=== PATIENT | male | born 1990 | race Caucasian/White ===

== ENCOUNTER 2020-12-28 22:16 | Emergency (ER) | payer SELFPAY ==
[2020-12-28 22:18] VITALS: BP 133/95; PULSE 95; RESP 18; TEMP 37.1; O2SAT 100; BMI 28.1
--- NOTE | 2020-12-28 22:27 | PC.NURSE ---
per , symptoms began after smoking marijuana at 1900.
== END 2020-12-29 01:15 | disposition left against medical advice (07) ==
LOC: HO.ED 12-29 01:14
PROVIDERS: Emergency Provider Emergency Medicine
DX: R20.0 Anesthesia of skin (principal); F41.9 Anxiety disorder, unspecified
CPT/HCPCS: 99281; 99282

== ENCOUNTER 2021-02-04 16:58 | Emergency (ER) | payer MEDICAID, SELFPAY | END 2021-02-04 19:03 | disposition left against medical advice (07) | PROVIDERS: Emergency Provider Emergency Medicine | DX: S01.21XA Laceration without foreign body of nose, initial encounter (principal); X58.XXXA Exposure to other specified factors, initial encounter; Y93.9 Activity, unspecified; Y92.9 Unspecified place or not applicable; Y99.9 Unspecified external cause status ==

== ENCOUNTER 2021-05-04 13:28 | Outpatient (REF) | payer OTHER, SELFPAY | END 2021-05-04 13:29 | disposition home or self-care (01) | LOC: HO.LAB 13:28 | PROVIDERS: Visit Provider Internal Medicine | DX: Z20.822 Contact with and (suspected) exposure to COVID-19 (principal) | CPT/HCPCS: C9803; U0003; U0005 ==

== ENCOUNTER 2021-05-10 08:27 | Outpatient (REF) | payer MEDICAID, SELFPAY | END 2021-05-10 08:28 | disposition home or self-care (01) | LOC: HO.LAB 08:27 | PROVIDERS: Visit Provider Internal Medicine | DX: Z20.822 Contact with and (suspected) exposure to COVID-19 (principal) | CPT/HCPCS: C9803; U0003; U0005 ==

== ENCOUNTER 2021-06-25 09:17 | Emergency (ER) | payer MEDICAID, SELFPAY ==
[2021-06-25 09:20] VITALS: BP 114/62; BP 128/59; PULSE 120; PULSE 89; RESP 24; O2SAT 97; O2SAT 98; BMI 33.8
[2021-06-25] MEDS: Haloperidol Lactate 5 MG/ML VIAL IV (09:31)
[2021-06-25] MEDS: LORazepam 2 MG/ML VIAL 1 MG IVPUSH (09:32)
[2021-06-25] MEDS: 0.9 % Sodium Chloride 1,000 ML 999 ML IV (09:34)
[2021-06-25] MEDS: diphenhydrAMINE HCL 50 MG/ML VIAL IVPUSH (09:38)
[2021-06-25] MEDS: Haloperidol Lactate 5 MG/ML VIAL IVPUSH (09:38)
--- NOTE | 2021-06-25 10:11 | MHC.CARE ---
Pt should be offered SUDE assessment when clinically appropriate
--- NOTE | 2021-06-25 10:17 | PC.NURSE ---
Mother here for update, limited on information given, made aware when pt awakes and verbal permission is obtained, more in depth update can be provided. Mother Ximena [phone]
[2021-06-25 10:24] VITALS: BP 91/44; PULSE 81; RESP 18; O2SAT 93
[2021-06-25 10:42] LABS: MANUAL DIFF FLAG NO
[2021-06-25 10:46] LABS: Basophils Absolute Auto 0.1 X10*3/uL (0.0-0.2); Basophils Percent Auto 0.4 % (0-2); Eosinophils Absolute Auto 0.2 X10*3/uL (0.0-0.4); Eosinophils Percent Auto 1.5 % (0-4); Hematocrit 40.3 % (42.0-52.0); Hemoglobin 13.6 g/dl (14.0-18.0); Imm Gran Abs Auto 0.07 X10*3/uL (0.00-0.03); Imm Gran Pct Auto 0.5 % (0.0-0.4); Lymphocytes Absolute Auto 1.7 X10*3/uL (1.2-4.9); Lymphocytes Percent Auto 12.1 % (20-40); Mean Corpuscular HGB Conc 33.7 g/dl (31.0-36.0); Mean Corpuscular Hemoglobin 31.2 pg (27.0-33.0); Mean Corpuscular Volume 92.4 fL (80.0-98.0); Mean Platelet Volume 9.9 fL (9.4-12.4); Monocytes Absolute Auto 0.8 X10*3/uL (0.1-1.2); Monocytes Percent Auto 5.5 % (2-11); Neutrophils Absolute Auto 11.4 x10*3/uL (2.0-8.3); Platelet Count 220 X10*3/uL (160-400); Red Blood Count 4.36 X10*6/uL (4.60-5.80); White Blood Count 14.3 X10*3/uL (4.8-10.8)
[2021-06-25 11:00] LABS: COVID-19 Test Negative (Negative); IDNOW Serial# 9DD0AD1C
[2021-06-25 11:01] LABS: Ethanol < 10 mg/dL
[2021-06-25 11:07] LABS: Alanine Aminotransferase 13 U/L (0-40); Albumin Level 3.5 g/dL (3.5-5.0); Alkaline Phosphatase 55 U/L (39-117); Anion Gap 12 (12-20); Aspartate Amino Transferase 16 U/L (5-37); Bilirubin Total < 0.2 mg/dL (0.0-1.0); Blood Urea Nitrogen 10 mg/dL (9-16); Calcium 8.5 mg/dL (8.4-10.2); Carbon Dioxide 26 mmol/L (22-29); Chloride 107 mmol/L (96-108); Estimated Glomerular Filt Rate > 60; Glucose Random 93 mg/dL (60-115); Potassium 3.6 mmol/L (3.3-5.1); Sodium 141 mmol/L (135-145); Total Protein 6.2 g/dL (6.5-8.0)
[2021-06-25 13:18] VITALS: BP 93/45; PULSE 73; RESP 10; O2SAT 100
--- NOTE | 2021-06-25 14:25 | PC.NURSE ---
spoke to dad, no update given as pt remains asleep, contact Lauri [phone]
[2021-06-25 15:03] VITALS: BP 95/51; PULSE 63; RESP 18; O2SAT 97
[2021-06-25 15:22] LABS: Amphetamine Screen Urine Not Detected (Not Detect); Barbiturates, Urine Not Detected (Not Detect); Benzodiazepines Screen Urine POSITIVE (Not Detect); Cannabinoid Screen Urine POSITIVE (Not Detect); Cocaine Screen Urine POSITIVE (Not Detect); Fentanyl, urine POSITIVE (Not Detect); Opiate Screen Urine POSITIVE (Not Detect); Phencyclidine Screen Urine Not Detected (Not Detect)
--- NOTE | 2021-06-25 18:20 | ED.OVERDOSE ---
HPI - Overdose General Chief Complaint: Overdose Stated Complaint: OD,NARCAN GIVEN, AGGRESSIVE Time Seen by Provider: 06/25/21 09:23 Source: EMS Mode of arrival: EMS Limitations: altered mental status History of Present Illness HPI Narrative: 30-year-old male who is brought to the emergency department for possible overdose. Patient was found unresponsive with a low respiratory rate by his girlfriend. When the paramedics arrived on the scene the in a very low respiratory rate with pinpoint pupils. The patient was given Narcan 0.5 mg IV. The patient then woke up and was extremely aggressive and agitated. He vomited several times. His pulse ranged from 90-170 with a respiratory rate ranging from 16-22. His O2 saturation on room air was 97% his blood pressure was 97/67. The patient had to be held down in the paramedics called for medical control. I ordered Versed 1 mg IV on the patient. When the patient arrived in the emergency department he was flailing around on the stretcher, he was making loud verbal noises but not able to answer questions or to talk. He was unable to be redirected. My impression is that the patient had a narcotic overdose and now is experiencing either severe withdrawal or an adverse reaction to the medication that he took at home. Patient was placed in restraints to protect him from injuring himself and injuring staff. He was treated initially with Haldol 5 mg IV and Ativan 1 mg IV. He required a 2nd dose of Haldol 5 mg IV and Benadryl 50 mg IV. Related Data Allergies Allergy/AdvReac Type Severity Reaction Status Date / Time No Known Allergies Allergy Unverified 06/25/21 09:23 Review of Systems Review of Systems: Yes Unobtainable due to mental status PMFSH Past Medical History Medical History Drug abuse No acute medical problems Surgical History History of appendectomy Social History Social History Alcohol intake: unknown Patient Tobacco Use Status: Tobacco use Unknown Use of substances other than those prescribed or required for medical reasons: Yes Advance Directives: No Advance Directives Information Provided: No Physical Exam Vital Signs: Vital Signs: Last Vital Signs Pulse 63 06/25/21 15:03 Resp 18 06/25/21 15:03 BP 95/51 L 06/25/21 15:03 Pulse Ox 97 06/25/21 15:03 BMI result Body Mass Index 33.8 Const: Other: Patient is agitated, he is making loud verbal noises which are incomprehensible, he is flailing around on the stretcher and cannot be redirected. HENMT: Head: Yes normal to inspection, Yes normocephalic and Yes atraumatic Ears: external ears normal General nose exam: Normal external nose present Face and sinus: Yes normal facial exam Mouth: Normal oral and palatal mucosa present Throat: Yes posterior oropharynx normal Eyes: General: appearance normal, both eyes and all related structures Neck: Neck: Yes normal visual inspection, Yes no lymphadenopathy, Yes trachea midline and Yes supple Chest: Chest palpation & inspection: normal inspection of the chest and normal palpation of entire chest wall Resp: Effort & Inspection: normal respiratory effort and able to speak in complete sentences Auscultation: clear to auscultation bilaterally Cardio: Rate: regular rate Rhythm: regular rhythm Heart sounds: S1 normal heart sound present, S2 normal heart sound present and no murmurs GI: Inspection: Yes normal to inspection Palpation (GI): Soft to palpation, nontender and no guarding Auscultation: normal bowel sounds : General: Yes no CVA tenderness Back/Spine/Pelvis: Back: no CVA tenderness Skin: General skin exam: no rashes or lesions noted Neuro: Other: Patient is agitated appears to be delirious. He moves all extremities symmetrically and is extremely combative and not following directions. Extrem: General: Yes normal to inspection Course Course Course Narrative: 30-year-old male who was found unresponsive by his girlfriend. Paramedics found the patient have pinpoint pupils with decreased increased respiratory rate. Patient was given Narcan 0.5 mg IV and the patient became responsive but was extremely agitated and delirious. He was give Versed 2 mg IV prior to arriving the emergency department with no change in his combative nature. The patient was extremely agitated, flailing around on the stretcher and was not following verbal orders and could not be redirected. He was placed in 4 point restraints to protect him from injuring himself and protect the staff. He was treated with Haldol 5 mg IV and Ativan 1 mg IV. He required a 2nd dose of Haldol 5 mg IV and Benadryl 50 mg IV with good effect. Patient was eventually taken out of 4 point restraints. His laboratory evaluation [place] [address]. Comprehensive metabolic panel was normal with a normal creatinine kinase of 139. Urine tox screen was positive for opiates, fentanyl, benzodiazepines, cocaine and marijuana. COVID-19 was negative. The patient's agitated delirium is most likely multifactorial and caused by polysubstance abuse and possibly an adverse reaction to 1 of the substances that he took. The patient has been observed here in the emergency department for 9 hours. The patient is now awake requesting to leave. I did tell him that he overdosed most likely on fentanyl and that he had bad reaction to the drugs that he took which caused him to be extremely agitated. I offered counseling from our data recovery planner and care team however the patient refused. I did the held patient if he continues to use narcotic medications he will overdose and and the patient understood this discussion and still refused counseling. The patient will be discharged home with a intranasal Narcan dispense pack. MDM - Overdose Lab Data Result diagrams: 06/25/21 10:36 06/25/21 10:36 Labs: Lab Results 06/25/21 06/25/21 06/25/21 Range/Units 10:36 10:36 10:36 WBC 14.3 H (4.8-10.8) X10*3/uL RBC 4.36 L (4.60-5.80) X10*6/uL Hgb 13.6 L (14.0-18.0) g/dl Hct 40.3 L (42.0-52.0) % MCV 92.4 (80.0-98.0) fL MCH 31.2 (27.0-33.0) pg MCHC 33.7 (31.0-36.0) g/dl RDW 13.0 (11.0-16.0) % Plt Count 220 (160-400) X10*3/uL MPV 9.9 (9.4-12.4) fL Immature Gran % (Auto) 0.5 H (0.0-0.4) % Neut % (Auto) 80.0 H (45-73) % Lymph % (Auto) 12.1 L (20-40) % [place] % (Auto) 5.5 (2-11) % Eos % (Auto) 1.5 (0-4) % Baso % (Auto) 0.4 (0-2) % Lymph # (Auto) 1.7 (1.2-4.9) X10*3/uL [place] # (Auto) 0.8 (0.1-1.2) X10*3/uL Eos # (Auto) 0.2 (0.0-0.4) X10*3/uL Baso # (Auto) 0.1 (0.0-0.2) X10*3/uL Abs Immat Gran (auto) 0.07 H (0.00-0.03) X10*3/uL Absolute Neuts (auto) 11.4 H (2.0-8.3) x10*3/uL Absolute Nucleated RBC 0.000 (0.0-0.012) X10*3/uL Nucleated RBC % (auto) 0.0 (0.0-0.2) /100WBC Sodium 141 (135-145) mmol/L Potassium 3.6 (3.3-5.1) mmol/L Chloride 107 (96-108) mmol/L Carbon Dioxide 26 (22-29) mmol/L Anion Gap 12 (12-20) BUN 10 (9-16) mg/dL Creatinine 0.78 (0.5-1.4) mg/dL Estim Creat Clear Calc 136.0 Estimated GFR > 60 Random Glucose 93 (60-115) mg/dL Calcium 8.5 (8.4-10.2) mg/dL Total Bilirubin < 0.2 (0.0-1.0) mg/dL AST 16 (5-37) U/L ALT 13 (0-40) U/L Alkaline Phosphatase 55 (39-117) U/L Total Creatine Kinase 139 (38-174) U/L Total Protein 6.2 L (6.5-8.0) g/dL Albumin 3.5 (3.5-5.0) g/dL Urine Opiates Screen (Not Detect) Urine Fentanyl Screen (Not Detect) Ur Barbiturates Screen (Not Detect) Ur Phencyclidine Scrn (Not Detect) Ur Amphetamines Screen (Not Detect) U Benzodiazepines Scrn (Not Detect) Urine Cocaine Screen (Not Detect) U Marijuana (THC) Screen (Not Detect) Ethyl Alcohol mg/dL COVID-19 (NIKHIL) Negative (Negative) COVID-19 Clin Com See Note 06/25/21 06/25/21 Range/Units 10:36 15:01 WBC (4.8-10.8) X10*3/uL RBC (4.60-5.80) X10*6/uL Hgb (14.0-18.0) g/dl Hct (42.0-52.0) % MCV (80.0-98.0) fL MCH (27.0-33.0) pg MCHC (31.0-36.0) g/dl RDW (11.0-16.0) % Plt Count (160-400) X10*3/uL MPV (9.4-12.4) fL Immature Gran % (Auto) (0.0-0.4) % Neut % (Auto) (45-73) % Lymph % (Auto) (20-40) % [place] % (Auto) (2-11) % Eos % (Auto) (0-4) % Baso % (Auto) (0-2) % Lymph # (Auto) (1.2-4.9) X10*3/uL [place] # (Auto) (0.1-1.2) X10*3/uL Eos # (Auto) (0.0-0.4) X10*3/uL Baso # (Auto) (0.0-0.2) X10*3/uL Abs Immat Gran (auto) (0.00-0.03) X10*3/uL Absolute Neuts (auto) (2.0-8.3) x10*3/uL Absolute Nucleated RBC (0.0-0.012) X10*3/uL Nucleated RBC % (auto) (0.0-0.2) /100WBC Sodium (135-145) mmol/L Potassium (3.3-5.1) mmol/L Chloride (96-108) mmol/L Carbon Dioxide (22-29) mmol/L Anion Gap (12-20) BUN (9-16) mg/dL Creatinine (0.5-1.4) mg/dL Estim Creat Clear Calc Estimated GFR Random Glucose (60-115) mg/dL Calcium (8.4-10.2) mg/dL Total Bilirubin (0.0-1.0) mg/dL AST (5-37) U/L ALT (0-40) U/L Alkaline Phosphatase (39-117) U/L Total Creatine Kinase (38-174) U/L Total Protein (6.5-8.0) g/dL Albumin (3.5-5.0) g/dL Urine Opiates Screen POSITIVE H (Not Detect) Urine Fentanyl Screen POSITIVE H (Not Detect) Ur Barbiturates Screen Not Detected (Not Detect) Ur Phencyclidine Scrn Not Detected (Not Detect) Ur Amphetamines Screen Not Detected (Not Detect) U Benzodiazepines Scrn POSITIVE H (Not Detect) Urine Cocaine Screen POSITIVE H (Not Detect) U Marijuana (THC) Screen POSITIVE H (Not Detect) Ethyl Alcohol < 10 mg/dL COVID-19 (NIKHIL) (Negative) COVID-19 Clin Com Discharge Plan Discharge Clinical Impression: Drug overdose, Agitation due to dementia Patient Disposition: Home, Self-Care Instructions: Narcotic Safety (ED), Narcotic Use Disorder (ED) Additional Instructions: Your found unresponsive at home and were only minimally breathing. The paramedics gave you Narcan IV and this caused her to wake up but you were very agitated and out of control. We had to medicate you with medicines to calm you down and you been in the emergency department for 9 hours. Your urine drug screen was positive for opiates, fentanyl, benzodiazepines, cocaine and marijuana. We offered you crisis counseling with our care team and data recovery planner to try to get you some help with your drug abuse however you refused. If you continue to use drugs you will eventually from an overdose since almost all street drug contain fentanyl. If you change your mind and you want to get some help with your drug use disorder, please return to the emergency department. Your are being discharged home with intranasal Narcan. If you are going to continue to use heroin, you should make sure that there is a sober person with you that is not using drugs and that this person can administer intranasal Narcan in the event that you stop breathing. Follow-up with your doctor in 2 days. Please return to the emergency department if your symptoms get worse or if you develop any symptoms that are concerning to you. Your COVID-19 test was negative
[2021-06-25] MEDS: Naloxone HCl Nasal TAKE HOME 4 MG SPRAY NOSTRILALT (20:16)
== END 2021-06-25 20:26 | disposition home or self-care (01) ==
PROVIDERS: Emergency Provider Emergency Medicine Emergency Medical Services
DX: T50.911A Poisoning by multiple unspecified drugs, medicaments and biological substances, accidental (unintentional), initial encounter (principal); R40.4 Transient alteration of awareness; R45.1 Restlessness and agitation; Y92.9 Unspecified place or not applicable; Z20.822 Contact with and (suspected) exposure to COVID-19; F19.10 Other psychoactive substance abuse, uncomplicated; F14.988 Cocaine use, unspecified with other cocaine-induced disorder; F12.988 Cannabis use, unspecified with other cannabis-induced disorder; F16.988 Hallucinogen use, unspecified with other hallucinogen-induced disorder
CPT/HCPCS: 80053; 80307; 82077; 82550; 85025; 87635; 96361; 96374; 96375; 99284; 99285; J1200; J2060

== ENCOUNTER 2024-10-22 05:18 | Emergency (ER) | payer OTHER, SELFPAY ==
[2024-10-22 05:21] VITALS: BP 103/67; PULSE 61; RESP 20; TEMP 36.2; O2SAT 99; BMI 30.5
[2024-10-22 05:42] VITALS: BP 112/79; PULSE 67; RESP 18; TEMP 36.7; O2SAT 99
--- NOTE | 2024-10-22 07:33 | ED.DENTAL ---
HPI - Dental/Oral General Chief complaint: Dental/Oral Stated complaint: Dental Pain Time Seen by Provider: 10/22/24 07:25 Source: patient Mode of arrival: ambulatory Limitations: no limitations History of Present Illness ED Provider: DR. Almaguer HPI Narrative: 34-year-old male came in for evaluation of dental pain. Broken last right lower wisdom teeth, patient has been taking amoxicillin from his sister with no relief of his symptoms. No fever, no chills, able to swallow his saliva, no speech issue. Related Data Previous Rx's ?Medication ?Instructions ?Recorded amoxicillin 500 mg-potassium 1 tab PO Q12H #14 tabs 10/22/24 clavulanate 125 mg tablet (Augmentin) ibuprofen 600 mg tablet 600 mg PO Q8H PRN pain #20 tabs 10/22/24 Allergies Allergy/AdvReac Type Severity Reaction Status Date / Time No Known Allergies Allergy Verified 10/22/24 05:22 Review of Systems Review of Systems: all other systems are reviewed and are negative Constitutional: Reports as per HPI and Reports no additional constitutional complaints Eyes: Reports as per HPI and Reports no additional eye complaints Reports system reviewed and no additional complaints, except as documented Cardiovascular: Reports as per HPI and Reports no additional cardiovascular complaints Respiratory: Reports as per HPI and Reports no additional respiratory complaints Gastrointestinal: Reports as per HPI and Reports no additional gastrointestinal complaints Genitourinary: Reports no additional female genitourinary complaints Musculoskeletal: Reports no additional musculoskeletal complaints Skin/Breast: Reports system reviewed and no additional complaints, except as docu Psychiatric: Reports no additional psychiatric complaints Endocrine: Reports no additional endocrine complaints Hematologic/Lymphatic: Reports no additional hematologic/lymphatic complaints Allergic/Immunologic: Reports no additional allergic/immunologic complaints Reports system reviewed and no additional complaints, except as documented and Reports Abnormal speech present [facility] Past Medical History Medical History Drug abuse No acute medical problems Surgical History History of appendectomy Social History Social History Alcohol intake: unknown Patient Tobacco Use Status: Tobacco use Unknown Smoked in Last 30 Days: Yes Use of substances other than those prescribed or required for medical reasons: No Advance Directives: No Advance Directives Information Provided: Yes Physical Exam Vital Signs: Vital Signs: Last Vital Signs Temp 98.0 F 10/22/24 05:42 Pulse 67 10/22/24 05:42 Resp 18 10/22/24 05:42 BP 112/79 10/22/24 05:42 Pulse Ox 99 10/22/24 05:42 O2 Del Method Room Air 10/22/24 05:42 BMI result Body Mass Index 30.5 Vital signs have been reviewed and appear to be correct. Blood pressure elevated. Heart rate normal. Respiratory rate normal. Temperature normal. Oxygen saturation normal. Appearance: Alert. Oriented X3. No acute distress. Head: Normal external exam. Normocephalic. Atraumatic. No [place] signs noted. No raccoon eyes noted Eyes: PERRLA. EOMI. Conjunctiva and sclera normal. Eyelids normal. ENT: TM's Normal. Pharynx normal. Uvula midline. Moist mucous membranes. No trismus noted. No drooling noted. No muffled voice noted. Neck: Normal inspection. Neck supple. FROM. No adenopathy. Thyroid Normal. No meningeal signs. No neck mass noted. CVS: Normal heart rate and rhythm. Heart sound normal. No murmurs noted. Pulses normal throughout. Respiratory: No respiratory distress. Painless inspiration. Breath sounds normal. No wheezes/rales/rhonchi noted. Chest nontender. No accessory muscle usage noted or decreased air movement noted. Abdomen: Soft and nontender. Bowel sounds normal in all 4 quadrants. No distention noted. No organomegaly noted. No visible injury noted. Back: No CVA tenderness. Full range of motion noted. Skin: Skin warm and dry. Normal skin color. Normal skin turgor. No rashes/lesions/lacerations noted. Extremities: No lower extremity edema. Extremities exhibit normal range of motion. Extremities nontender. Neuro: Oriented X 3. Cranial nerve exam: II-XII are grossly intact No motor deficit. No sensory deficit. Reflexes normal. HEENT: Teeth image: 1. tenderness to touch, mild tenderness of the gum surrounding, no fluctuation, no abscess. Course Reevaluation(s) Reevaluation #1: Dental infection with dental pain start on amoxicillin, NSAIDs, follow-up with a dentist. Time: 07:38 Medical Decision Making Differential Diagnosis Differential Diagnoses: The differential diagnosis associated with the presentation includes ( Dental infection, dental abscess, facial cellulitis, gingivitis.) Admission/Observation Consideration of admission/observation: Escalation of care including admission/observation considered Discharge Plan Discharge Clinical Impression: Toothache Patient Disposition: Home, Self-Care Instructions: Toothache (ED) Additional Instructions: follow-up with your dentist in 2-3 days. Prescriptions: New amoxicillin-pot clavulanate [Augmentin] 500-125 mg tablet 1 tab PO Q12H Qty: 14 0RF ibuprofen 600 mg tablet 600 mg PO Q8H PRN (Reason: pain) Qty: 20 0RF Print Language: Polish
[2024-10-22] MEDS: Ibuprofen 600 MG TABLET PO (07:52)
[2024-10-22] MEDS: Amoxicillin/Potassium Clav 500 MG TABLET PO (07:53)
[2024-10-22 09:08] VITALS: BP 116/74; PULSE 61; RESP 17; TEMP 36.7; O2SAT 98
== END 2024-10-22 09:11 | disposition home or self-care (01) ==
PROVIDERS: Emergency Provider Emergency Medicine
DX: K08.89 Other specified disorders of teeth and supporting structures (principal)
CPT/HCPCS: 99283; 99284